=== PATIENT | female | born 1960 | race Two or more races ===

== ENCOUNTER 2017-04-09 03:53 | Emergency (ER) | payer BC ==
[~2017-04-09] VITALS: Ht 160 cm; Wt 68.0 kg
[2017-04-09 03:59] VITALS: BP 156/80
== END 2017-04-09 08:48 | disposition left against medical advice (07) ==
LOC: ER 03:53
DX: R10.9 Unspecified abdominal pain (principal); Z53.21 Procedure and treatment not carried out due to patient leaving prior to being seen by health care provider